=== PATIENT | female | born 1945 | race Two or more races ===

== ENCOUNTER 2017-08-09 09:01 | Outpatient (CLI) | payer OTHER ==
[~2017-08-09 09:01] MED LIST: ATACAND32 MG; HYZAAR 50/12.51 TAB; KLONOPIN0.5 MG/TAB; METOPROLOL SUCC25 MG; PRILOSEC40 MG; TENORMIN50 MG; TRAMADOL HCL-AP1 TAB; VYTORIN 10-20 M1 TAB
== END 2017-08-09 10:00 | disposition home or self-care (01) ==
LOC: NUCLEAR 09:01
DX: M81.0 Age-related osteoporosis without current pathological fracture (principal); I10 Essential (primary) hypertension; G62.0 Drug-induced polyneuropathy; M54.14 Radiculopathy, thoracic region; E11.51 Type 2 diabetes mellitus with diabetic peripheral angiopathy without gangrene; E11.9 Type 2 diabetes mellitus without complications; E11.65 Type 2 diabetes mellitus with hyperglycemia

== ENCOUNTER 2018-08-01 08:28 | Outpatient (CLI) | payer OTHER | END 2018-08-01 17:00 | disposition home or self-care (01) | LOC: MAMO-SONO 08:28 | DX: Z12.31 Encounter for screening mammogram for malignant neoplasm of breast (principal); Z87.898 Personal history of other specified conditions; N62 Hypertrophy of breast ==

== ENCOUNTER 2018-08-15 08:55 | Outpatient (CLI) | payer OTHER | END 2018-08-15 16:18 | disposition home or self-care (01) | LOC: NUCLEAR 08:55 | DX: I87.2 Venous insufficiency (chronic) (peripheral) (principal); I73.9 Peripheral vascular disease, unspecified ==

== ENCOUNTER 2022-05-04 09:49 | Outpatient (CLI) | payer OTHER | END 2022-05-04 09:59 | disposition home or self-care (01) | LOC: RAD 09:49 | PROVIDERS: ATTEND Internal Medicine Cardiovascular Disease | DX: R07.9 Chest pain, unspecified (principal); M12.9 Arthropathy, unspecified ==

== ENCOUNTER 2022-10-23 09:39 | Outpatient (CLI) | payer OTHER | END 2022-10-23 09:47 | disposition home or self-care (01) | LOC: RAD 09:39 | DX: M54.50 Low back pain, unspecified (principal) ==

== ENCOUNTER 2022-12-11 10:19 | Outpatient (CLI) | payer OTHER | END 2022-12-11 10:32 | disposition home or self-care (01) | LOC: MRI 10:19 | DX: M54.50 Low back pain, unspecified (principal); M43.16 Spondylolisthesis, lumbar region | CPT/HCPCS: 72148 ==

== ENCOUNTER 2023-01-18 09:01 | Outpatient (CLI) | payer OTHER | END 2023-01-18 09:08 | disposition home or self-care (01) | LOC: RAD 09:01 | DX: M25.562 Pain in left knee (principal); Z91.81 History of falling ==

== ENCOUNTER 2024-03-29 17:59 | Emergency (ER) | payer OTHER ==
[~2024-03-29] VITALS: Ht 157.5 cm; Wt 63.5 kg
[~2024-03-29 17:59] MED LIST changes: +ATORVASTATIN CA10 MG; +CALAMINE LOTIO177 M1 TP; +METFORMIN HCL500 M3 PO; +SYNTHROID50 MCG PO
[2024-03-29 18:20] VITALS: O2SAT 96
[2024-03-29] MEDS ORDERED: cloNIDine HCL 0.2 MG TABLET PO ONE (18:45)
[2024-03-29 19:55] VITALS: BP 150/70
[2024-03-29] MEDS ORDERED: MUPIROCIN15 GM TOP (19:58)
[2024-03-29] MEDS ORDERED: BACTRIM DS TAB1 EACH PO (19:58)
== END 2024-03-29 20:42 | disposition home or self-care (01) ==
LOC: ER 18:01
DX: I10 Essential (primary) hypertension (principal)

== ENCOUNTER 2024-05-17 20:27 | Emergency (ER) | payer OTHER ==
[~2024-05-17] VITALS: Ht 149.9 cm; Wt 68.0 kg
[~2024-05-17 20:27] MED LIST changes: +BACTRIM DS TAB1 EACH PO; +MUPIROCIN15 GM TOP
[2024-05-17] MEDS ORDERED: JANUMET 50-1,01 EACH PO (21:04)
[2024-05-17] MEDS ORDERED: GLIMEPIRIDE4 M1 PO (21:04)
[2024-05-17 21:05] VITALS: O2SAT 93
[2024-05-17] MEDS ORDERED: NIFEDIPINE 10 MG CAPSULE PO ONE (22:00)
[2024-05-17] MEDS ORDERED: FAMOtidine 10 MG/ML (4ML VIAL) IV ONE (22:30)
[2024-05-17] MEDS ORDERED: 0.9 % SODIUM CHLORIDE 1,000 ML IV ONE (22:30)
[2024-05-17 23:39] LABS: HEMATOCRIT 41.9 % (36.0-45.00); HEMOGLOBIN 13.7 g/dL (12.0-15.00); MEAN CELL VOLUME 84.9 fL (80.00-100.00); MEAN CORPUSCULAR HEMOGLOBIN 27.8 pg (27.00-32.0); MEAN CORPUSCULAR HGB CONC 32.8 g/dl (32.0-36.0); PLATELET COUNT 299 K/uL (150-450); RED BLOOD COUNT 4.93 M/uL (4.00-6.00); RED CELL DISTRIBUTION WIDTH 15.4 % (11.5-14.5)
[2024-05-17 23:48] LABS: INR 1.02; PARTIAL THROMBOPLASTIN TIME 26.5 SECONDS (22.0-34.0); PROTHROMBIN TIME 11.1 SECONDS (9.0-11.5)
[2024-05-17 23:58] LABS: ALBUMIN 3.9 gm/dL (3.4-5.0); BILIRUBIN TOTAL 0.18 mg/dL (0.3-1.2); CALCIUM 9.3 mg/dL (8.5-10.1); CREATININE SERUM 1.06 mg/dL (0.55-1.02); GFR 50.13; GLOBULINA 4.1 G/DL (2.4-3.5); POTASSIUM 3.92 mEq/L (3.5-5.1)
[2024-05-18 00:51] LABS: URINE APPEARANCE Clear; URINE BILIRRUBIN Negative (NEGATIVE); URINE BLOOD Negative; URINE COLOR Yellow; URINE GLUCOSE Negative (NEGATIVE); URINE KETONE Negative (NEGATIVE); URINE LEUKOCYTE Negative; URINE NITRATE Negative; URINE PROTEIN Trace (NEGATIVE); URINE UROBILINOGEN 0.2 E.U./dl
[2024-05-18 00:55] LABS: URINE BACTERIA 15.8 uL (0.0-1933); URINE EPITHELIAL CELLS 2.1 uL (0.0-38.8)
[2024-05-18 01:20] LABS: URINE CAST 0.29 uL (0.0-1.40); URINE WBC 1.4 uL (0.0-23.2)
[2024-05-18] MEDS ORDERED: LEVALBUTER0.63 MG/3 IH (02:09)
[2024-05-18] MEDS ORDERED: NASAL MIST126 ML NASAL (02:09)
[2024-05-18] MEDS ORDERED: OSEL75CA PO (02:09)
[2024-05-18] MEDS ORDERED: PEPCID40 MG PO (02:13)
[2024-05-18] MEDS ORDERED: ZYNCOF 20-400120 ML PO (02:13)
[2024-05-18 02:20] VITALS: BP 135/80
== END 2024-05-18 02:22 ==
LOC: ER 20:29
PROVIDERS: General Practice
DX: J10.1 Influenza due to other identified influenza virus with other respiratory manifestations (principal); Z20.822 Contact with and (suspected) exposure to COVID-19; I10 Essential (primary) hypertension; E11.9 Type 2 diabetes mellitus without complications; Z79.84 Long term (current) use of oral hypoglycemic drugs

== ENCOUNTER 2024-05-24 18:04 | Inpatient (IN) | payer OTHER ==
[~2024-05-24] VITALS: Ht 147.3 cm; Wt 63.5 kg
[~2024-05-24 18:04] MED LIST changes: +GLIMEPIRIDE4 M1 PO; +JANUMET 50-1,01 EACH PO; +LEVALBUTER0.63 MG/3 IH; +NASAL MIST126 ML NASAL; +OSEL75CA PO; +PEPCID40 MG PO; +ZYNCOF 20-400120 ML PO
--- NOTE | 2024-05-24 18:25 | NUR ---
PACIENTE ALERTA Y ORIENTADA X3. REFIERE COMENZAR CON MALESTAR GENERAL Y NAUSEAS DESDE HACE DOS REAVES. AL MOMENTO DE TRIAGE NO REFIERE VOMITOS. SE HORACIO S/V Y SE UBICA.
[2024-05-24] MEDS ORDERED: FAMOTIDINE/PF 20 MG/2 ML VIAL IV ONE (19:45)
[2024-05-24] MEDS ORDERED: ONDANSETRON HCL 2 MG/ML VIAL IV ONE (19:45)
[2024-05-24] MEDS ORDERED: ONDANSETRON HCL 2 MG/ML VIAL ONE (19:52)
[2024-05-24] MEDS ORDERED: FAMOTIDINE/PF 20 MG/2 ML VIAL ONE (19:52)
[2024-05-24 20:29] LABS: HEMATOCRIT 41.6 % (36.0-45.00); HEMOGLOBIN 13.3 g/dL (12.0-15.00); MEAN CELL VOLUME 86.4 fL (80.00-100.00); MEAN CORPUSCULAR HEMOGLOBIN 27.6 pg (27.00-32.0); PLATELET COUNT 342 K/uL (150-450); RED BLOOD COUNT 4.82 M/uL (4.00-6.00); RED CELL DISTRIBUTION WIDTH 14.7 % (11.5-14.5)
--- NOTE | 2024-05-24 20:38 | NUR ---
SE ORIENTA A PACIENTE SOBRE TRATAMIENTO MEDICO, REFIERE ENTENDER. SE COLECTAN MUESTRAS DE LABORATORIO BAJO MEDIDAS ASEPTICAS Y SE ADMINISTRAN MEDICAMENTOS JULIANN ORDEN MEDICA. SE NOTIFICA X-RAY.
[2024-05-24 20:48] LABS: ALBUMIN 3.7 gm/dL (3.4-5.0); BILIRUBIN TOTAL 0.41 mg/dL (0.3-1.2); CALCIUM 9.5 mg/dL (8.5-10.1); CREATININE SERUM 1.03 mg/dL (0.55-1.02); GFR 51.82; GLOBULINA 3.7 G/DL (2.4-3.5); POTASSIUM 4.97 mEq/L (3.5-5.1); TOTAL PROTEIN 7.4 gm/dL (6.4-8.2)
[2024-05-24 21:05] LABS: PH,URINE 5.5 (5.0-8.0); URINE APPEARANCE Clear; URINE BILIRRUBIN Negative (NEGATIVE); URINE BLOOD Negative; URINE COLOR Yellow; URINE GLUCOSE Negative (NEGATIVE); URINE KETONE Negative (NEGATIVE); URINE LEUKOCYTE Moderate; URINE NITRATE Negative; URINE PROTEIN 30 (NEGATIVE); URINE UROBILINOGEN 0.2 E.U./dl
[2024-05-24 21:09] LABS: URINE BACTERIA 149.2 uL (0.0-1933); URINE EPITHELIAL CELLS 15.8 uL (0.0-38.8); URINE WBC 131.1 uL (0.0-23.2)
[2024-05-24 21:12] LABS: URINE CAST 0.29 uL (0.0-1.40); URINE RBC 1.9 uL (0.0-20.8)
[2024-05-24] MEDS ORDERED: 0.9 % SODIUM CHLORIDE 500 ML IV ONE (23:00)
[2024-05-24] MEDS ORDERED: ACETAMINOPHEN 325 MG TABLET PO PRN (23:00)
[2024-05-24] MEDS ORDERED: INSULIN LISPRO 1,000 UNIT/10 ML UNITS SUBCUTANEO PRN (23:00)
[2024-05-24] MEDS ORDERED: hydrALAZINE HCL 20 MG VIAL IV PRN (23:00)
[2024-05-24] MEDS ORDERED: CEFTRIAXONE SODIUM 2,000 MG VIAL IV ONE (23:00)
[2024-05-24] MEDS ORDERED: ONDANSETRON HCL 4 MG in 0.9 % SODIUM CHLORIDE 50 ML IV PRN (23:00)
[2024-05-24] MEDS ORDERED: DEXTROSE 50 % IN WATER 0.5 G/ML DISP.SYRIN IV PRN (23:00)
[2024-05-24] MEDS ORDERED: 0.9 % SODIUM CHLORIDE 1,000 ML IV SCH (23:00)
[2024-05-24] MEDS ORDERED: CEFTRIAXONE SODIUM 2,000 MG VIAL ONE (23:44)
[2024-05-25] MEDS ORDERED: LEVOTHYROXINE SODIUM 50 MCG TABLET PO SCH (06:00)
[2024-05-25] MEDS ORDERED: CEFTRIAXONE SODIUM 2,000 MG VIAL ONE (07:39)
[2024-05-25] MEDS ORDERED: CEFTRIAXONE SODIUM 2,000 MG in DEXTROSE 5 % IN WATER 100 ML IV SCH (09:00)
[2024-05-25] MEDS ORDERED: PANTOPRAZOLE SODIUM 40 MG/VIAL VIAL IV SCH (09:00)
[2024-05-25] MEDS ORDERED: ENOXAPARIN SODIUM 30 MG/0.3 ML SYRINGE SUBCUTANEO SCH (09:00)
[2024-05-25] MEDS ORDERED: METOPROLOL SUCCINATE 25 MG TAB.SR.24H PO SCH (09:00)
[2024-05-25 09:14] VITALS: BP 186/64; O2SAT 96
[2024-05-25] MEDS ORDERED: METRONIDAZOLE/SODIUM CHLORIDE 100 ML IV SCH (17:00)
[2024-05-25] MEDS ORDERED: ATORVASTATIN CALCIUM 10 MG TABLET PO SCH (17:00)
[2024-05-25 17:43] VITALS: BP 160/85; O2SAT 96
[2024-05-26 00:39] VITALS: BP 194/72; O2SAT 90
[2024-05-26 06:02] LABS: ALBUMIN 3.3 gm/dL (3.4-5.0); ALKALINE PHOSPHATASE 73 U/L (50-136); ALT/SGPT 35 U/L (12-78); ANION GAP 5 (10.0-20.0); AST/SGOT 21 U/L (15-37); BILIRUBIN TOTAL 0.29 mg/dL (0.3-1.2); BLOOD UREA NITROGEN 11 mg/dL (7-18); BUN CREA RATIO 13 (7.0-25.0); CALCIUM 8.8 mg/dL (8.5-10.1); CARBON DIOXIDE 26 mEq/L (21-32); CHLORIDE 115 mmol/L (98-107); CREATININE SERUM 0.85 mg/dL (0.55-1.02); GFR 64.68; GLOBULINA 3.2 G/DL (2.4-3.5); GLUCOSE FASTING 168 mg/dL (65-100); OSMOLALITY SERUM 286 MOSM/KG (275-295); PHOSPHOROUS 2.3 mg/dL (2.5-4.9); POTASSIUM 3.73 mEq/L (3.5-5.1); SODIUM 142 mmol/L (136-145); TOTAL PROTEIN 6.5 gm/dL (6.4-8.2)
[2024-05-26 06:09] LABS: HEMATOCRIT 39.4 % (36.0-45.00); HEMOGLOBIN 12.9 g/dL (12.0-15.00); MEAN CELL VOLUME 85.5 fL (80.00-100.00); MEAN CORPUSCULAR HGB CONC 32.8 g/dl (32.0-36.0); PLATELET COUNT 288 K/uL (150-450); RED BLOOD COUNT 4.61 M/uL (4.00-6.00); RED CELL DISTRIBUTION WIDTH 14.6 % (11.5-14.5)
[2024-05-26 06:30] LABS: C-REACTIVE PROTEIN < 0.29 MG/DL (0.00-0.29)
[2024-05-26 07:14] LABS: MYCOPLASMA PNEUMONIAE IGM NON REACTIVE (NO REACTIVE)
[2024-05-26 07:17] LABS: PLATELET ESTIMATE NORMAL (NORMAL)
[2024-05-26 08:00] VITALS: BP 165/77; O2SAT 96
[2024-05-26 15:27] LABS: C-REACTIVE PROTEIN < 0.29 MG/DL (0.00-0.29); CHOL HDL RATIO 3.9 (0-5.0); CHOLESTEROL 134 mg/dL (0-200); HDL 34 mg/dl (40-60); LDL 54 mg/dl (0-130); TRIGLYCERIDES 231 mg/dL (0-150); VLDL 46 (0-39)
[2024-05-26 16:22] VITALS: BP 167/74; O2SAT 96
[2024-05-26 16:36] LABS: CKMB 3.3 NG/ML (0.5-3.6)
[2024-05-26] MEDS ORDERED: GUAIFENESIN 200 MG/10 ML BLIST.PACK PO SCH (18:00)
[2024-05-27 01:06] VITALS: BP 185/77; O2SAT 96
[2024-05-27 08:25] VITALS: BP 161/76; O2SAT 99
[2024-05-27 16:02] VITALS: BP 160/64; O2SAT 95
[2024-05-27 16:35] LABS: PH,URINE 6.5 (5.0-8.0); URINE APPEARANCE Clear; URINE BILIRRUBIN Negative (NEGATIVE); URINE BLOOD Negative; URINE COLOR Yellow; URINE GLUCOSE Negative (NEGATIVE); URINE KETONE Negative (NEGATIVE); URINE LEUKOCYTE Negative; URINE NITRATE Negative; URINE PROTEIN Trace (NEGATIVE); URINE UROBILINOGEN 0.2 E.U./dl
[2024-05-27 16:47] LABS: URINE BACTERIA 1.2 uL (0.0-1933); URINE EPITHELIAL CELLS 0.6 uL (0.0-38.8); URINE RBC 1.3 uL (0.0-20.8); URINE WBC 0.6 uL (0.0-23.2)
[2024-05-28 00:13] VITALS: BP 186/811; O2SAT 96
[2024-05-28] MEDS ORDERED: ENALAPRILAT DIHYDRATE 1.25 MG/ML VIAL IV ONE (03:30)
[2024-05-28 07:54] LABS: HEMATOCRIT 41.2 % (36.0-45.00); HEMOGLOBIN 13.6 g/dL (12.0-15.00); MEAN CELL VOLUME 84.6 fL (80.00-100.00); PLATELET COUNT 339 K/uL (150-450); RED BLOOD COUNT 4.87 M/uL (4.00-6.00); RED CELL DISTRIBUTION WIDTH 14.8 % (11.5-14.5)
[2024-05-28 09:34] VITALS: BP 161/78; O2SAT 97
[2024-05-28 15:47] VITALS: BP 156/76; O2SAT 96
[2024-05-29 00:38] VITALS: BP 180/77; O2SAT 96
[2024-05-30 06:16] LABS: HEMATOCRIT 36.2 % (36.0-45.00); HEMOGLOBIN 11.7 g/dL (12.0-15.00); MEAN CELL VOLUME 85.6 fL (80.00-100.00); MEAN CORPUSCULAR HEMOGLOBIN 27.7 pg (27.00-32.0); MEAN CORPUSCULAR HGB CONC 32.4 g/dl (32.0-36.0); PLATELET COUNT 280 K/uL (150-450); RED BLOOD COUNT 4.23 M/uL (4.00-6.00); RED CELL DISTRIBUTION WIDTH 14.8 % (11.5-14.5)
[2024-05-30 09:41] LABS: PLATELET ESTIMATE NORMAL (NORMAL)
[2024-05-30 13:09] LABS: ALBUMIN 3.2 gm/dL (3.4-5.0); ALKALINE PHOSPHATASE 74 U/L (50-136); ALT/SGPT 37 U/L (12-78); ANION GAP 11 (10.0-20.0); AST/SGOT 23 U/L (15-37); BILIRUBIN TOTAL 0.29 mg/dL (0.3-1.2); BLOOD UREA NITROGEN 12 mg/dL (7-18); BUN CREA RATIO 15 (7.0-25.0); CALCIUM 9.4 mg/dL (8.5-10.1); CARBON DIOXIDE 24 mEq/L (21-32); CHLORIDE 112 mmol/L (98-107); CREATININE SERUM 0.81 mg/dL (0.55-1.02); GFR 68.38; GLOBULINA 3.2 G/DL (2.4-3.5); PHOSPHOROUS 2.9 mg/dL (2.5-4.9); POTASSIUM 3.76 mEq/L (3.5-5.1); SODIUM 143 mmol/L (136-145); TOTAL PROTEIN 6.4 gm/dL (6.4-8.2)
[2024-05-30 13:16] LABS: C-REACTIVE PROTEIN < 0.29 MG/DL (0.00-0.29); GLUCOSE FASTING 218 mg/dL (65-100); OSMOLALITY SERUM 291 MOSM/KG (275-295)
[2024-05-30] MEDS ORDERED: IRBESARTAN 150 MG TABLET PO NR (14:15)
[2024-05-30 16:50] VITALS: BP 160/78; O2SAT 95
[2024-05-30 23:52] VITALS: BP 184/48; O2SAT 95
[2024-05-31 05:48] LABS: HEMATOCRIT 37.6 % (36.0-45.00); HEMOGLOBIN 12.1 g/dL (12.0-15.00); MEAN CELL VOLUME 86.2 fL (80.00-100.00); MEAN CORPUSCULAR HEMOGLOBIN 27.8 pg (27.00-32.0); MEAN CORPUSCULAR HGB CONC 32.2 g/dl (32.0-36.0); PLATELET COUNT 300 K/uL (150-450); RED BLOOD COUNT 4.36 M/uL (4.00-6.00); RED CELL DISTRIBUTION WIDTH 14.9 % (11.5-14.5)
[2024-05-31 08:00] VITALS: BP 167/74; O2SAT 96
[2024-05-31] MEDS ORDERED: INSULIN NPH HUM/REG INSULIN HM 1,000 UNIT/10 ML UNITS SUBCUTANEO STA (08:50)
[2024-05-31] MEDS ORDERED: IRBESARTAN 150 MG TABLET PO SCH (09:00)
[2024-06-01] MEDS ORDERED: INSULIN NPH HUM/REG INSULIN HM 1,000 UNIT/10 ML UNITS SUBCUTANEO SCH (08:00)
[2024-06-01] MEDS ORDERED: IRBESARTAN 300 MG TABLET PO SCH (09:00)
== END 2024-05-31 21:35 | disposition home or self-care (01) | DRG 690 ==
LOC: ER 18:06 → MEDI 22:48
PROVIDERS: Internal Medicine; Internal Medicine Infectious Disease; Preventive Medicine Public Health & General Preventive Medicine; ADMIT Internal Medicine; ATTEND Internal Medicine
PROC: BW40ZZZ Ultrasonography of Abdomen (ICD-10-PCS; principal; 2024-05-25)
PROC: BW21ZZZ Computerized Tomography (CT Scan) of Abdomen and Pelvis (ICD-10-PCS; 2024-05-25)
PROC: BW24ZZZ Computerized Tomography (CT Scan) of Chest and Abdomen (ICD-10-PCS; 2024-05-26)
PROC: B24BYZZ Ultrasonography of Heart with Aorta using Other Contrast (ICD-10-PCS; 2024-05-29)
DX: N39.0 Urinary tract infection, site not specified (principal); I10 Essential (primary) hypertension; E11.9 Type 2 diabetes mellitus without complications; Z79.4 Long term (current) use of insulin; E03.9 Hypothyroidism, unspecified; E78.5 Hyperlipidemia, unspecified

== ENCOUNTER 2024-09-12 19:26 | Emergency (ER) | payer OTHER ==
[~2024-09-12] VITALS: Ht 152.4 cm; Wt 68.0 kg
[2024-09-12 19:33] VITALS: BP 130/89; O2SAT 97
[2024-09-12] MEDS ORDERED: CETIRIZINE HCL 5 MG/5 ML ML PO STA (23:21)
[2024-09-12] MEDS ORDERED: GUAIFENESIN/DEXTROMETHORPHAN 100MG/10ML BLIST.PACK PO STA (23:22)
[2024-09-12] MEDS ORDERED: GUAIFEN/DEXTROMETHORPHAN/PE 10 ML BLIST.PACK PO ONE (23:36)
[2024-09-12] MEDS ORDERED: CETIRIZINE HCL 5MG/5ML BLIST.PACK PO ONE (23:36)
[2024-09-13 00:15] LABS: HEMATOCRIT 41.7 % (36.0-45.00); HEMOGLOBIN 13.4 g/dL (12.0-15.00); MEAN CORPUSCULAR HEMOGLOBIN 27.5 pg (27.00-32.0); PLATELET COUNT 268 K/uL (150-450); RED BLOOD COUNT 4.85 M/uL (4.00-6.00); RED CELL DISTRIBUTION WIDTH 16.7 % (11.5-14.5)
[2024-09-13 00:38] LABS: COVID-19 AG NEGATIVE (NEGATIVE)
[2024-09-13 02:34] LABS: INFLUENZA A AG NEGATIVE (NEGATIVE)
== END 2024-09-13 03:13 ==
LOC: ER 19:27
PROVIDERS: General Practice
DX: J06.9 Acute upper respiratory infection, unspecified (principal); Z20.822 Contact with and (suspected) exposure to COVID-19; E11.9 Type 2 diabetes mellitus without complications; Z79.84 Long term (current) use of oral hypoglycemic drugs; I10 Essential (primary) hypertension; E03.9 Hypothyroidism, unspecified

== ENCOUNTER 2024-12-24 20:43 | Inpatient (IN) | payer OTHER ==
[~2024-12-24] VITALS: Ht 142.2 cm; Wt 72.6 kg
[2024-12-24] MEDS ORDERED: 0.9 % SODIUM CHLORIDE 1,000 ML IV STA (23:13)
[2024-12-24] MEDS ORDERED: INSULIN REGULAR, HUMAN 1,000 UNIT/10 ML UNITS SUBCUTANEO STA (23:14)
[2024-12-24] MEDS ORDERED: FAMOtidine 10 MG/ML (4ML VIAL) IV PUSH STA (23:15)
[2024-12-24] MEDS ORDERED: INSULIN REGULAR, HUMAN 1,000 UNIT/10 ML UNITS SUBCUTANEO ONE (23:45)
[2024-12-25 00:08] LABS: BASO % 0.2 % (0.1-1.2); EOS # 0.01 (0.04-0.54); EOS % 0.0 % (0.7-7.0); LYMPH # 2.56 (1.18-3.74); LYMPH % 10.4 % (19.3-53.1); MEAN PLATELET VOLUME 12.20 fl (9.4-12.4); MONO # 1.99 (0.24-0.82); MONO % 8.1 % (4.7-12.5); NEUT # 19.94 (1.56-6.13); NEUT % 81.0 % (34.0-71.1); RED CELL DISTRIBUTION WIDTH 14.0 % (11.6-14.4)
[2024-12-25 00:32] LABS: ALT/SGPT 32.0 U/L (12-78); AST/SGOT 47.0 U/L (15-37); BILIRUBIN TOTAL 0.42 mg/dL (0.3-1.2); BUN CREA RATIO 15.0 (7.0-25.0); CREATININE SERUM 1.2 mg/dL (0.55-1.02); GFR 43.45; GLOBULINA 4.4 G/DL (2.4-3.5); OSMOLALITY SERUM 292.0 MOSM/KG (275-295)
[2024-12-25 01:01] LABS: GLUCOSE FASTING 296.0 mg/dL (65-100)
[2024-12-25] MEDS ORDERED: CEFTRIAXONE SODIUM 1,000 MG VIAL IV STA (03:24)
[2024-12-25 03:27] LABS: URINE APPEARANCE Cloudy; URINE BILIRRUBIN Negative (NEGATIVE); URINE BLOOD Large; URINE COLOR Dark Yellow; URINE KETONE 15 (NEGATIVE); URINE LEUKOCYTE Negative; URINE NITRATE Negative; URINE UROBILINOGEN 1.0 E.U./dl
[2024-12-25 03:31] LABS: URINE BACTERIA 313.1 uL (0.0-1933); URINE CAST 17.30 uL (0.0-1.40); URINE EPITHELIAL CELLS 85.9 uL (0.0-38.8); URINE RBC 5.8 uL (0.0-20.8); URINE WBC 14.7 uL (0.0-23.2)
[2024-12-25 04:05] LABS: URINE GLUCOSE >=1000 MG/DL (NEGATIVE); URINE MUCUS HEAVY; URINE PROTEIN 300 (NEGATIVE)
[2024-12-25 05:00] LABS: BASO % 0.3 % (0.1-1.2); EOS # 0.03 (0.04-0.54); EOS % 0.1 % (0.7-7.0); LYMPH # 2.79 (1.18-3.74); LYMPH % 11.4 % (19.3-53.1); MEAN PLATELET VOLUME 11.40 fl (9.4-12.4); MONO # 2.64 (0.24-0.82); MONO % 10.8 % (4.7-12.5); NEUT # 18.73 (1.56-6.13); NEUT % 76.9 % (34.0-71.1); RED CELL DISTRIBUTION WIDTH 14.2 % (11.6-14.4)
[2024-12-25 08:51] LABS: COVID-19 AG NEGATIVE (NEGATIVE)
[2024-12-25] MEDS ORDERED: FAMOTIDINE/PF 20 MG in 0.9 % SODIUM CHLORIDE 8 ML IV PUSH SCH (18:13)
[2024-12-25] MEDS ORDERED: PIPERACILLIN/TAZOBACTAM SODIUM 3.375 GM in DEXTROSE 5 % IN WATER 100 ML IV SCH (18:13)
[2024-12-25] MEDS ORDERED: 0.9 % SODIUM CHLORIDE 1,000 ML IV SCH (18:15)
[2024-12-25] MEDS ORDERED: ONDANSETRON HCL 4 MG in 0.9 % SODIUM CHLORIDE 50 ML IV PRN (18:15)
[2024-12-25] MEDS ORDERED: INSULIN LISPRO 1,000 UNIT/10 ML UNITS SUBCUTANEO PRN (18:15)
[2024-12-25] MEDS ORDERED: DEXTROSE 50 % IN WATER 0.5 G/ML DISP.SYRIN IV PRN (18:15)
[2024-12-25] MEDS ORDERED: ACETAMINOPHEN 500 MG GEL..CAP PO PRN (18:15)
[2024-12-25 21:29] LABS: INR 1.02
[2024-12-25 21:59] VITALS: BP 162/72
[2024-12-26 02:23] VITALS: BP 187/68; O2SAT 98
[2024-12-26 07:00] VITALS: BP 149/77; O2SAT 90
[2024-12-26] MEDS ORDERED: METOPROLOL SUCCINATE 25 MG TAB.SR.24H PO SCH (09:00)
[2024-12-26] MEDS ORDERED: ENOXAPARIN SODIUM 40 MG/0.4 ML SYRINGE SUBCUTANEO SCH (09:00)
[2024-12-26] MEDS ORDERED: ATORVASTATIN CALCIUM 10 MG TABLET PO SCH (17:00)
[2024-12-26 18:26] VITALS: BP 188/71
[2024-12-26] MEDS ORDERED: GABAPENTIN 100 MG CAPSULE PO SCH (21:00)
[2024-12-27 01:55] VITALS: BP 150/60; O2SAT 97
[2024-12-27] MEDS ORDERED: LEVOTHYROXINE SODIUM 50 MCG TABLET PO SCH (06:00)
[2024-12-27 09:06] VITALS: BP 182/68; O2SAT 97
[2024-12-27] MEDS ORDERED: CEFTRIAXONE SODIUM 2,000 MG in 0.9 % SODIUM CHLORIDE 100 ML IV NR (13:00)
[2024-12-27] MEDS ORDERED: AZITHROMYCIN 500 MG VIAL IV NR (13:30)
[2024-12-27] MEDS ORDERED: LOSARTAN POTASSIUM 50 MG TABLET PO SCH (17:00)
[2024-12-27] MEDS ORDERED: SIMETHICONE 125 MG CAPSULE PO SCH (17:44)
[2024-12-27] MEDS ORDERED: LACTOBACILLUS ACIDOPHILUS 1 CAP CAP PO SCH (17:44)
[2024-12-27 17:55] VITALS: BP 177/79
[2024-12-27] MEDS ORDERED: FAMOTIDINE/PF 20 MG in 0.9 % SODIUM CHLORIDE 8 ML IV PUSH SCH (21:00)
[2024-12-28 01:36] VITALS: BP 172/62; O2SAT 95
[2024-12-28 06:15] LABS: BASO % 0.5 % (0.1-1.2); EOS # 0.41 (0.04-0.54); EOS % 2.4 % (0.7-7.0); LYMPH # 4.91 (1.18-3.74); LYMPH % 28.7 % (19.3-53.1); MEAN PLATELET VOLUME 12.10 fl (9.4-12.4); MONO # 1.63 (0.24-0.82); MONO % 9.5 % (4.7-12.5); NEUT # 9.97 (1.56-6.13); NEUT % 58.4 % (34.0-71.1); RED CELL DISTRIBUTION WIDTH 14.0 % (11.6-14.4)
[2024-12-28 06:35] LABS: ERYTHROCYTE SEDIMENTATION RATE 46 mm/hr (0-30)
[2024-12-28 07:00] LABS: ALT/SGPT 59.0 U/L (12-78); AST/SGOT 43.0 U/L (15-37); BILIRUBIN TOTAL 0.41 mg/dL (0.3-1.2); BUN CREA RATIO 11.0 (7.0-25.0); CREATININE SERUM 0.94 mg/dL (0.55-1.02); GFR 57.59; GLOBULINA 3.9 G/DL (2.4-3.5); GLUCOSE FASTING 171.0 mg/dL (65-100); OSMOLALITY SERUM 290.0 MOSM/KG (275-295)
[2024-12-28] MEDS ORDERED: AZITHROMYCIN 500 MG VIAL IV SCH (09:00)
[2024-12-28] MEDS ORDERED: CEFTRIAXONE SODIUM 2,000 MG in 0.9 % SODIUM CHLORIDE 100 ML IV SCH (09:00)
[2024-12-28 09:03] VITALS: BP 170/80; O2SAT 98
[2024-12-28 18:02] VITALS: BP 157/87; O2SAT 94
[2024-12-29 01:51] VITALS: BP 168/66; O2SAT 95
[2024-12-29 10:42] VITALS: BP 1560/93; O2SAT 93
[2024-12-29] MEDS ORDERED: LOPERAMIDE HCL 2 MG CAPSULE PO NR (11:15)
[2024-12-29 15:22] LABS: FECAL LEUKOCYTES NEGATIVE (NEGATIVE)
[2024-12-29 17:12] VITALS: BP 198/88; O2SAT 96
[2024-12-29 20:06] LABS: T4 TOTAL 9.42 UG/DL (4.8-13.9); TSH 1.58 uIU/mL (0.358-3.74)
[2024-12-30 01:27] VITALS: BP 170/60
[2024-12-30 07:53] LABS: ALT/SGPT 33.0 U/L (12-78); AST/SGOT 18.0 U/L (15-37); BILIRUBIN TOTAL 0.3 mg/dL (0.3-1.2); BUN CREA RATIO 13.0 (7.0-25.0); CREATININE SERUM 0.78 mg/dL (0.55-1.02); GFR 71.43; GLOBULINA 3.2 G/DL (2.4-3.5); GLUCOSE FASTING 142.0 mg/dL (65-100); OSMOLALITY SERUM 290.0 MOSM/KG (275-295)
[2024-12-30 08:26] LABS: BASO % 0.4 % (0.1-1.2); EOS # 0.43 (0.04-0.54); EOS % 2.9 % (0.7-7.0); LYMPH # 3.90 (1.18-3.74); LYMPH % 26.7 % (19.3-53.1); MEAN PLATELET VOLUME 11.80 fl (9.4-12.4); MONO # 1.42 (0.24-0.82); MONO % 9.7 % (4.7-12.5); NEUT # 8.72 (1.56-6.13); NEUT % 60.0 % (34.0-71.1); RED CELL DISTRIBUTION WIDTH 13.9 % (11.6-14.4)
[2024-12-30 08:49] LABS: ERYTHROCYTE SEDIMENTATION RATE 59 mm/hr (0-30)
[2024-12-30 09:50] VITALS: BP 170/64; O2SAT 95
[2024-12-30] MEDS ORDERED: POTASSIUM CHLORIDE IN WATER 100 ML IV NR (16:00)
[2024-12-30] MEDS ORDERED: ENALAPRILAT DIHYDRATE 1.25 MG/ML VIAL IV PRN (16:15)
[2024-12-30] MEDS ORDERED: LOSARTAN POTASSIUM 100 MG TABLET PO SCH (17:00)
[2024-12-30 17:55] VITALS: BP 160/80; O2SAT 98
[2024-12-31 02:02] VITALS: BP 130/70
[2024-12-31 10:27] VITALS: BP 150/65
[2024-12-31] MEDS ORDERED: ACETAMINOPHEN 500 MG GEL..CAP PO PRN (15:15)
[2024-12-31 17:51] VITALS: BP 160/75
[2025-01-01 01:55] VITALS: BP 175/80
[2025-01-01 09:12] VITALS: BP 176/70; O2SAT 96
[2025-01-01] MEDS ORDERED: HYDROCORTISONE 2.5% 30 GM TUBE RECTAL SCH (17:00)
[2025-01-01 17:27] VITALS: BP 178/117
[2025-01-02 01:05] VITALS: BP 180/69
[2025-01-02 08:29] VITALS: BP 154/80
[2025-01-02 09:11] LABS: BASO % 0.4 % (0.1-1.2); EOS # 0.41 (0.04-0.54); EOS % 2.5 % (0.7-7.0); LYMPH # 4.16 (1.18-3.74); LYMPH % 25.0 % (19.3-53.1); MEAN PLATELET VOLUME 11.70 fl (9.4-12.4); MONO # 1.21 (0.24-0.82); MONO % 7.3 % (4.7-12.5); NEUT # 10.71 (1.56-6.13); NEUT % 64.1 % (34.0-71.1); RED CELL DISTRIBUTION WIDTH 13.7 % (11.6-14.4)
[2025-01-02 09:50] LABS: ALT/SGPT 27.0 U/L (12-78); AST/SGOT 15.0 U/L (15-37); BILIRUBIN TOTAL 0.25 mg/dL (0.3-1.2); BUN CREA RATIO 11.0 (7.0-25.0); CREATININE SERUM 0.93 mg/dL (0.55-1.02); GFR 58.31; GLOBULINA 3.6 G/DL (2.4-3.5)
[2025-01-02 09:52] LABS: GLUCOSE FASTING 239.0 mg/dL (65-100); OSMOLALITY SERUM 290.0 MOSM/KG (275-295)
[2025-01-02] MEDS ORDERED: Lipitor 10MG TABLET PO (13:13)
[2025-01-02] MEDS ORDERED: LOSARTAN POTAS100 MG PO (13:13)
[2025-01-02] MEDS ORDERED: LEVOTHYROXINE50 MCG PO (13:13)
[2025-01-02] MEDS ORDERED: GABAPENTIN100 MG PO (13:13)
[2025-01-02] MEDS ORDERED: INTESTINEX680 M1 PO (13:13)
[2025-01-02] MEDS ORDERED: LEVOFLOXACIN750 MG PO (13:13)
[2025-01-02] MEDS ORDERED: TOPROL XL25 M1 PO (13:13)
== END 2025-01-02 13:25 | disposition home or self-care (01) | DRG 871 ==
LOC: ER 20:43 → MEDJ 12-25 19:23 → SEC-K 12-25 20:59 → MEDJ 12-25 21:01
PROVIDERS: General Practice; Internal Medicine; Internal Medicine Infectious Disease; ADMIT Internal Medicine; ATTEND Internal Medicine
PROC: BW21ZZZ Computerized Tomography (CT Scan) of Abdomen and Pelvis (ICD-10-PCS; 2024-12-25)
PROC: B020ZZZ Computerized Tomography (CT Scan) of Brain (ICD-10-PCS; 2024-12-25)
PROC: BB24ZZZ Computerized Tomography (CT Scan) of Bilateral Lungs (ICD-10-PCS; principal; 2024-12-26)
DX: A41.9 Sepsis, unspecified organism (principal); J18.1 Lobar pneumonia, unspecified organism; N17.9 Acute kidney failure, unspecified; N39.0 Urinary tract infection, site not specified; E11.65 Type 2 diabetes mellitus with hyperglycemia; E86.0 Dehydration; R19.7 Diarrhea, unspecified; N31.8 Other neuromuscular dysfunction of bladder; I12.9 Hypertensive chronic kidney disease with stage 1 through stage 4 chronic kidney disease, or unspecified chronic kidney disease; E03.9 Hypothyroidism, unspecified; E78.5 Hyperlipidemia, unspecified; N18.9 Chronic kidney disease, unspecified; Z79.84 Long term (current) use of oral hypoglycemic drugs